=== PATIENT | female | born 1995 | race Caucasian/White ===

== ENCOUNTER 2018-05-25 20:51 | Emergency (ER) | payer OTHER ==
[~2018-05-25] VITALS: Ht 154.9 cm; Wt 48.7 kg
[~2018-05-25 20:51] MED LIST: CETI10TA10 PO; NORETAB29 PO; [UNRECOGNIZED DRUG - OTHER] OPB
[2018-05-25 20:55] VITALS: Ht 154.9 cm; Wt 48.7 kg
[2018-05-25] MEDS ORDERED: SODIUM CHLORIDE 0.9% 1000ML 2,000 ML IV STA (21:19)
[2018-05-25] MEDS ORDERED: KETOROLAC TROMETHAMINE 30 MG/ML VIAL IV STA (21:19)
[2018-05-25] MEDS ORDERED: ACETAMINOPHEN 500 MG TAB PO STA (21:19)
--- NOTE | 2018-05-25 21:39 | DIAGNOSTIC IMAGING REPORT ---
CHEST ONE VIEW PORTABLE CLINICAL HISTORY: 23 years-old Female presenting with cough and fever. TECHNIQUE: Portable upright AP view of the chest was obtained. COMPARISON: 01/30/2016. FINDINGS: Cardiomediastinal silhouette normal. Focal round opacity in the right midlung. No pleural effusion or pneumothorax. Osseous structures normal. Upper abdomen normal. IMPRESSION: 1. Round opacity in the right midlung most suspicious for pneumonia. This should be followed to resolution. Electronically signed by: Jitendra Dejesus M.D. 05/25/2018 9:38 PM Dictated Date/Time: 05/25/2018 9:37 PM
[2018-05-25 21:50] LABS: BASO % 0.2 %; BASO ABS # 0.01 K/uL (0-0.2); EOS % 0.2 %; EOS ABS # 0.01 K/uL (0-0.5); HEMATOCRIT 39.5 % (37-47); HEMOGLOBIN 13.7 g/dL (12.0-16.0); LYMPH % 14.1 %; MEAN CELL VOLUME 92.9 fL (80-100); MEAN CORPUSCULAR HEMOGLOBIN 32.2 pg (25-34); MEAN CORPUSCULAR HGB CONC 34.7 g/dl (32-36); MEAN PLATELET VOLUME 10.9 fL (7.4-10.4); MONO % 8.1 %; MONO ABS # 0.46 K/uL (0.11-0.59); NEUT % 77.4 %; NEUT ABS # 4.41 K/uL (1.4-6.5); PLATELET COUNT 208 K/uL (130-400); RED CELL DISTRIBUTION WIDTH CV 12.3 % (11.5-14.5); RED CELL DISTRIBUTION WIDTH SD 41.8 fL (36.4-46.3); WHITE BLOOD COUNT 5.69 K/uL (4.8-10.8)
[2018-05-25 22:16] LABS: ALBUMIN 3.7 gm/dl (3.4-5.0); CALCIUM 8.8 mg/dl (8.5-10.1); CREATININE 0.76 mg/dl (0.60-1.20); POTASSIUM 3.7 mmol/L (3.5-5.1); TOTAL PROTEIN 7.7 gm/dl (6.4-8.2)
[2018-05-25] MEDS ORDERED: DOXYCYCLINE HYCLATE 100 MG CAP PO ONE (23:15)
[2018-05-25] MEDS ORDERED: DOXY100C PO (23:15)
[2018-05-25 23:31] VITALS: BP 94/62; PULSE 97; TEMP 37.4; O2SAT 95
--- NOTE | 2018-05-26 01:31 | EMERGENCY ROOM VISIT NOTE ---
History Report prepared by Tristen: Екатерина Quinn Under the Supervision of: Dr. Valentín Amaral D.O. First contact with patient: 21:03 Chief Complaint: FEVER Stated Complaint: HIGH FEVER History of Present Illness The patient is a 23 year old female who presents to the Emergency Room with complaints of a worsening fever that began about three days ago. She states that the fever started off very low and she felt achiness along with it. She states that the fever then gradually got worse and it was most recently 103.9. She states that a dry cough started today and she can feel post nasal drip. She denies any sore throat. She states that she has abdominal pain with coughing. She states that her brother had similar symptoms recently and it was found he had adeno virus that then progressed into pneumonia. She states that she went to [facility] yesterday and go a zpac that she states she started today. She states that she has been taking advil since yesterday every six hours. She states that she last took it about two hours prior to arrival. She denies having any other medical problems. Source of History: patient Onset: three days ago Position: other (generalized ) Quality: other (fever) Timing: worsening Modifying Factors (Relieving): other (advil ) Associated Symptoms: + cough (dry ), + abdominal pain (with cough ), No sorethroat Note: additional symptoms: achiness Review of Systems See HPI for pertinent positives & negatives. A total of 10 systems reviewed and were otherwise negative. 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 Status: [employer] student Current/Historical Medications Scheduled Cetirizine Hcl (Zyrtec), 10 MG PO DAILY Doxycycline Hyclate (Vibramycin), 100 MG PO BID Lodoxamide Tromethamine (Alomide), 1 DROP OPB DAILY Norethindrone Acetate-Ethinyl (Lo Loestrin Fe), 1 TAB PO DAILY Allergies Coded Allergies: POLLEN (Unverified Allergy, Unknown, ITCHY EYES AND NOSE , 01/30/16) Peanut (Unverified Allergy, Unknown, SWELLING SWELLING CANT BREATH , ) Physical Exam Vital Signs Date Time Temp Pulse Resp B/P (MAP) Pulse Ox O2 Delivery O2 Flow Rate FiO2 05/25/18 23:31 37.4 97 18 94/62 95 05/25/18 22:50 37.7 88 16 116/68 99 Room Air 05/25/18 22:48 37.7 05/25/18 22:01 38.1 05/25/18 20:55 39.5 147 18 104/66 95 Room Air Physical Exam GENERAL: Sitting up in bed, with a dry nonproductive cough, alert, well appearing, well nourished, no distress, non-toxic EYE EXAM: normal conjunctiva. EARS: TMs normal bilaterally. OROPHARYNX: no exudate, no erythema, lips, buccal mucosa, and tongue normal and mucous membranes are moist NECK: supple, no nuchal rigidity, no adenopathy, non-tender LUNGS: Clear to auscultation. Normal chest wall mechanics HEART: no murmurs, S1 normal and S2 normal ABDOMEN: abdomen soft, non-tender, normo-active bowel sounds, no masses, no rebound or guarding. BACK: Back is symmetrical on inspection and there is no deformity, no midline tenderness, no CVA tenderness. SKIN: no rashes and no bruising UPPER EXTREMITIES: upper extremities are grossly normal. LOWER EXTREMITIES: No pitting edema. NEURO EXAM: Normal sensorium, cranial nerves II-XII grossly intact, normal speech, no gross weakness of arms, no gross weakness of legs. Medical Decision & Procedures ER Provider Diagnostic Interpretation: Radiology results as stated below per my review and the radiologist's interpretation: CHEST ONE VIEW PORTABLE CLINICAL HISTORY: 23 years-old Female presenting with cough and fever. TECHNIQUE: Portable upright AP view of the chest was obtained. COMPARISON: 01/30/2016. FINDINGS: Cardiomediastinal silhouette normal. Focal round opacity in the right midlung. No pleural effusion or pneumothorax. Osseous structures normal. Upper abdomen normal. IMPRESSION: 1. Round opacity in the right midlung most suspicious for pneumonia. This should be followed to resolution. Electronically signed by: Jitendra Dejesus M.D. 05/25/2018 9:38 PM Dictated Date/Time: 05/25/2018 9:37 PM Laboratory Results 05/25/18 21:39 Red Blood Count 4.25, Mean Corpuscular Volume 92.9, Mean Corpuscular Hemoglobin 32.2, Mean Corpuscular Hemoglobin Concent 34.7, Mean Platelet Volume 10.9, Neutrophils (%) (Auto) 77.4, Lymphocytes (%) (Auto) 14.1, Monocytes (%) (Auto) 8.1, Eosinophils (%) (Auto) 0.2, Basophils (%) (Auto) 0.2, Neutrophils # (Auto) 4.41, Lymphocytes # (Auto) 0.80, Monocytes # (Auto) 0.46, Eosinophils # (Auto) 0.01, Basophils # (Auto) 0.01 05/25/18 21:39 Test 05/25/18 21:39 White Blood Count 5.69 K/uL (4.8-10.8) Red Blood Count 4.25 M/uL (4.2-5.4) Hemoglobin 13.7 g/dL (12.0-16.0) Hematocrit 39.5 % (37-47) Mean Corpuscular Volume 92.9 fL (80-100) Mean Corpuscular Hemoglobin 32.2 pg (25-34) Mean Corpuscular Hemoglobin Concent 34.7 g/dl (32-36) Platelet Count 208 K/uL (130-400) Mean Platelet Volume 10.9 fL (7.4-10.4) Neutrophils (%) (Auto) 77.4 % Lymphocytes (%) (Auto) 14.1 % Monocytes (%) (Auto) 8.1 % Eosinophils (%) (Auto) 0.2 % Basophils (%) (Auto) 0.2 % Neutrophils # (Auto) 4.41 K/uL (1.4-6.5) Lymphocytes # (Auto) 0.80 K/uL (1.2-3.4) Monocytes # (Auto) 0.46 K/uL (0.11-0.59) Eosinophils # (Auto) 0.01 K/uL (0-0.5) Basophils # (Auto) 0.01 K/uL (0-0.2) RDW Standard Deviation 41.8 fL (36.4-46.3) RDW Coefficient of Variation 12.3 % (11.5-14.5) Immature Granulocyte % (Auto) 0.0 % Immature Granulocyte # (Auto) 0.00 K/uL (0.00-0.02) Anion Gap 6.0 mmol/L (3-11) Est Creatinine Clear Calc Drug Dose 88.3 ml/min Estimated GFR () 130.0 Estimated GFR (Non- 112.1 BUN/Creatinine Ratio 8.8 (10-20) Calcium Level 8.8 mg/dl (8.5-10.1) Total Bilirubin 0.4 mg/dl (0.2-1) Direct Bilirubin 0.2 mg/dl (0-0.2) Aspartate Amino Transf (AST/SGOT) 17 U/L (15-37) Alanine Aminotransferase (ALT/SGPT) 21 U/L (12-78) Alkaline Phosphatase 57 U/L (45-117) Total Protein 7.7 gm/dl (6.4-8.2) Albumin 3.7 gm/dl (3.4-5.0) Laboratory results per my review. Medications Administered Medications (Trade) Dose Ordered Sig/Evangelina Route Start Time Stop Time Status Last Admin Dose Admin Sodium Chloride 2,000 ml @ 999 mls/hr Q2H1M STAT IV 05/25/18 21:19 05/25/18 23:19 DC 05/25/18 21:45 999 MLS/HR Acetaminophen (Tylenol Tab) 1,000 mg NOW STAT PO 05/25/18 21:19 05/25/18 21:21 DC 05/25/18 21:45 1,000 MG Ketorolac Tromethamine (Toradol Inj) 30 mg NOW STAT IV 05/25/18 21:19 05/25/18 21:21 DC 05/25/18 21:44 30 MG Doxycycline Hyclate (Vibramycin Cap) 100 mg ONE ONCE PO 05/25/18 23:15 05/25/18 23:16 DC 05/25/18 23:25 100 MG ED Course ED COURSE: Vital signs were reviewed and showed febrile and tachycardic The patients medical record was reviewed The above diagnostic studies were performed and reviewed. ED treatments and interventions as stated above. 2118: The patient was evaluated in room C3. A complete history and physical examination was performed. 2321: Upon reevaluation, the patient is doing better. I discussed my findings with the patient and she understands and agrees with the treatment plan. The patient wants me to talk to her parents. 2334: Based on the patients age, coexisting illnesses, exam and lab findings the decision to treat as an outpatient was made. I talked to the patient's parents. The patient remained stable while under my care. The patient appeared well at the time of discharge. Medical Decision Differential diagnosis includes etiologies such as sepsis, UTI, pneumonia, metabolic, electrolyte abnormalities, cardiac sources, intracerebral event, toxicologic, neurologic, as well as others were entertained. Patient is a 23-year-old female who presents the ER for fevers associated with body aches cough and congestion. Brother was sick and diagnosed with adenovirus and pneumonia. She notes her symptoms are exactly the same. Upon presentation she is febrile and tachycardic. CBC along with BMP, LFTs, bilirubin was unremarkable. Chest x-ray does show a focal pneumonia. She is on azithromycin and I elected to switch her to doxycycline. She is given 2 L normal saline, Tylenol and Toradol. She was given oral doxycycline. She was updated bedside. Discussed with family. She is discharged follow-up with PCP as an outpatient with pneumonia. Discussed with Pt concerning signs and symptoms to watch out for. Pt was instructed to follow up with their PCP and discussed with the patient their option to return to the ED at anytime for persistent or worsening symptoms. The appropriate anticipatory guidance and out- patient management, including indications for return to the emergency department , were explained at length to the patient and understood. Medication Reconcilliation Current Medication List: was personally reviewed by me Blood Pressure Screening Patient's blood pressure: Normal blood pressure Impression Primary Impression: Pneumonia Scribe Attestation The scribe's documentation has been prepared under my direction and personally reviewed by me in its entirety. I confirm that the note above accurately reflects all work, treatment, procedures, and medical decision making performed by me. Departure Information Dispostion Home / Self-Care Prescriptions Doxycycline Hyclate (VIBRAMYCIN) 100 Mg Cap 100 MG PO BID for 10 Days, CAP Prov: Valentín Amaral DO 05/25/18 Referrals No Doctor, Assigned (PCP) Forms HOME CARE DOCUMENTATION FORM, IMPORTANT VISIT INFORMATION Patient Instructions My [facility] Additional Instructions Please follow up with your primary care doctor with in the next 24 hours. Any worsening of your symptoms, please return to the ED immediately. This includes any fevers greater than 100.4, worsening pain, chest pain, shortness breath, persistent nausea, vomiting, unable to eat or drink, or any other concerning signs or symptoms from your standpoint. Please take Tylenol or Motrin as needed for fevers and muscle aches. Please stop taking azithromycin which is her current antibiotic. Please start taking doxycycline as prescribed instead of azithromycin. Problem Qualifiers Primary Impression: Pneumonia Pneumonia type: due to unspecified organism Laterality: unspecified laterality Lung location: unspecified part of lung Qualified Codes: J18.9 - Pneumonia, unspecified organism
== END 2018-05-25 23:31 | disposition home or self-care (01) ==
LOC: C.EDB 20:52 → C.EDC 23:31
DX: J18.9 Pneumonia, unspecified organism (principal); Z79.899 Other long term (current) drug therapy; Z91.048 Other nonmedicinal substance allergy status; Z91.010 Allergy to peanuts

== ENCOUNTER 2018-05-29 08:24 | Inpatient (IN) | payer OTHER ==
[~2018-05-29] VITALS: Ht 154.9 cm; Wt 47.4 kg
[~2018-05-29 08:24] MED LIST changes: +DOXY100C PO
[2018-05-29] MEDS ORDERED: CEFTRIAXONE SOD INJ 1 GM ADDVIAL IV STA (09:04)
[2018-05-29] MEDS ORDERED: SODIUM CHLORIDE 0.9% 1000ML 2,000 ML IV STA (09:04)
[2018-05-29] MEDS ORDERED: HYDROCODONE/HOMATROPINE SYRUP 5MG/1.5MG 5ML UDP PO STA (09:07)
[2018-05-29] MEDS ORDERED: ALBUT/IPRATROP 3MG/0.5MG NEB 3 ML VIAL INH STA (09:07)
[2018-05-29] MEDS ORDERED: AZITHROMYCIN IV 500 MG in DEXTROSE 5% 250ML 250 ML IV ONE (09:30)
[2018-05-29] MEDS ORDERED: ACET-1311 PO (09:31)
[2018-05-29] MEDS ORDERED: IBUP-103 PO (09:31)
[2018-05-29 09:33] LABS: BASO % 0.4 %; BASO ABS # 0.02 K/uL (0-0.2); EOS % 1.3 %; EOS ABS # 0.07 K/uL (0-0.5); HEMATOCRIT 35.3 % (37-47); HEMOGLOBIN 12.5 g/dL (12.0-16.0); IG# 0.01 K/uL (0.00-0.02); LYMPH % 15.7 %; LYMPH ABS # 0.83 K/uL (1.2-3.4); MEAN CELL VOLUME 91.7 fL (80-100); MEAN CORPUSCULAR HEMOGLOBIN 32.5 pg (25-34); MEAN CORPUSCULAR HGB CONC 35.4 g/dl (32-36); MEAN PLATELET VOLUME 10.4 fL (7.4-10.4); MONO % 8.5 %; MONO ABS # 0.45 K/uL (0.11-0.59); NEUT % 73.9 %; NEUT ABS # 3.92 K/uL (1.4-6.5); PLATELET COUNT 251 K/uL (130-400); RED CELL DISTRIBUTION WIDTH CV 12.1 % (11.5-14.5); RED CELL DISTRIBUTION WIDTH SD 41.4 fL (36.4-46.3)
[2018-05-29 09:50] LABS: ALBUMIN 3.3 gm/dl (3.4-5.0); CALCIUM 9.1 mg/dl (8.5-10.1); CREATININE 0.62 mg/dl (0.60-1.20); POTASSIUM 3.7 mmol/L (3.5-5.1); TOTAL PROTEIN 7.3 gm/dl (6.4-8.2)
--- NOTE | 2018-05-29 09:59 | DIAGNOSTIC IMAGING REPORT ---
CHEST 2 VIEWS ROUTINE HISTORY: 23 years-old Female EVAL PNEUMONIA acute shortness of breath with follow-up study in a patient with history of recent pneumonia COMPARISON: Chest radiographs 05/25/2018 and 01/30/2016 TECHNIQUE: PA and lateral views of the chest FINDINGS: Cardiac silhouette is within normal limits. No pneumothorax or pleural effusion. Airspace opacities about the distribution of the superior segment right lower lobe have mildly worsened from comparison. Additionally, there is suggestion of ill-defined alveolar opacities of the right upper lobe. Left lung is clear. Bones of the chest appear grossly intact. IMPRESSION: Progressively worsened airspace opacities about the superior segment right lower lobe suggest ongoing pneumonia. Follow-up imaging to document resolution is recommended. The above report was generated using voice recognition software. It may contain grammatical, syntax or spelling errors. Electronically signed by: Ethan Cho M.D. 05/29/2018 9:58 AM Dictated Date/Time: 05/29/2018 9:56 AM
--- NOTE | 2018-05-29 10:34 | EMERGENCY ROOM VISIT NOTE ---
History First contact with patient: 08:36 Chief Complaint: RESPIRATORY PROBLEMS Stated Complaint: PNEUMONIA,FEVER,DIFFICULTY BREATHING,YEAST INFECTI Nursing Triage Summary: pt reports she was dx with cheli in ed on wednesday "i have just been getting worse, i can't breathe and i have a fever still, i also think i have a yeast infection." pt reports she went to [facility] on wednesday and given medication for yeast infection. pt reports she took tylenol at 0800 today. pt denies taking any motrin. History of Present Illness Patient is a 23-year-old female who presents to emergency department for ongoing cough, fever and shortness of breath. Patient relates that she has been sick with a fever for over a week. She was seen and thoroughly evaluated here on 05/25 after being seen at [facility] earlier in the day. She took 1 dose of a Z-Wisam on 05/25 prior to being seen here in the emergency department. She was diagnosed with pneumonia and was placed on doxycycline. Patient states that despite the doxycycline, her symptoms are worsening. She still has difficulty breathing, has a productive cough, and cannot lay flat. She still running fevers between 101-102 F orally, despite alternating Tylenol and ibuprofen. Patient also reports that she has developed symptoms consistent with a yeast infection including vaginal itching and discharge. She was seen at [facility] again yesterday, and it was placed on fluconazole 1 dose every 3 days x3 doses. Urinalysis was also concerning for a UTI, and a urine culture was ordered and is pending. Patient has been using cough drops, she was not placed on any other medications including inhalers or cough medications. Patient reports that her brother was ill with similar symptoms and was diagnosed with "adenovirus and then pneumonia." He was treated with a azithromycin according to the patient's mother. She does report a history of pneumonia last year. Patient reports that she is nauseous secondary to the doxycycline, has been pushing oral fluids, but only eating in order to take her antibiotic. She has not vomited. Review of Systems Review of systems as per HPI. All other systems reviewed were negative. 10 systems reviewed. Past Medical/Surgical History Medical Problems: (1) Community acquired pneumonia (2) Environmental and seasonal allergies (3) Fever (4) Keratoconjunctivitis (5) Pneumonia (6) Pneumonia (7) Viral illness Electronic medical records are reviewed and summarized as above/below. See Problem List. 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 Status: [employer] student Current/Historical Medications Scheduled Cetirizine Hcl (Zyrtec), 10 MG PO DAILY Doxycycline Hyclate (Vibramycin), 100 MG PO BID Lodoxamide Tromethamine (Alomide), 1 DROP OPB DAILY Miscellaneous Medications Acetaminophen (Tylenol), 325 MG PO Ibuprofen Tab (Advil), 200 MG PO Physical Exam Vital Signs Date Time Temp Pulse Resp B/P (MAP) Pulse Ox O2 Delivery O2 Flow Rate FiO2 05/29/18 11:38 109 16 95/62 95 Room Air 05/29/18 10:20 37.3 05/29/18 10:13 100 18 100/63 97 Room Air 05/29/18 09:21 100 20 107/62 95 Room Air 05/29/18 08:44 108 05/29/18 08:43 95 Room Air 05/29/18 08:35 Room Air 05/29/18 08:29 38.8 118 20 106/60 93 Room Air Physical Exam MENTAL STATUS: Patient is an ill although nontoxic appearing 23-year-old female who is awake and alert and in no acute distress. She is ambulatory into the exam room. No conversational dyspnea. She is noted to be febrile, temperature 38.8, tachycardic with a heart rate of 118. Oxygen saturation 93% on room air. HEAD: Atraumatic, without temporal or scalp tenderness. EYES: PERRL, EOMI, no discharge or injection. EARS: Tympanic membranes intact, not inflamed, have normal contour. External canals clear. NOSE: Nares patent, turbinates edematous and boggy with clear rhinorrhea. MOUTH: Mucous membranes moist, no lesions, tongue and gums appear normal. THROAT: No pharyngeal injection, exudates, or tonsillar hypertrophy. Airway is patent. NECK: Supple, nontender, no lymphadenopathy. HEART: Regular rate and rhythm without murmurs, ectopy, gallops, or rubs. LUNGS: Clear to auscultation, slightly diminished on the right compared to the left, no adventitious sounds appreciated. SKIN: Normal. NEUROLOGICAL: Sensory and motor functions grossly intact. Normal gait. Medical Decision & Procedures ER Provider Diagnostic Interpretation: CHEST 2 VIEWS ROUTINE HISTORY: 23 years-old Female EVAL PNEUMONIA acute shortness of breath with follow-up study in a patient with history of recent pneumonia COMPARISON: Chest radiographs 05/25/2018 and 01/30/2016 TECHNIQUE: PA and lateral views of the chest FINDINGS: Cardiac silhouette is within normal limits. No pneumothorax or pleural effusion. Airspace opacities about the distribution of the superior segment right lower lobe have mildly worsened from comparison. Additionally, there is suggestion of ill-defined alveolar opacities of the right upper lobe. Left lung is clear. Bones of the chest appear grossly intact. IMPRESSION: Progressively worsened airspace opacities about the superior segment right lower lobe suggest ongoing pneumonia. Follow-up imaging to document resolution is recommended. Laboratory Results 05/29/18 09:15 Red Blood Count 3.85, Mean Corpuscular Volume 91.7, Mean Corpuscular Hemoglobin 32.5, Mean Corpuscular Hemoglobin Concent 35.4, Mean Platelet Volume 10.4, Neutrophils (%) (Auto) 73.9, Lymphocytes (%) (Auto) 15.7, Monocytes (%) (Auto) 8.5, Eosinophils (%) (Auto) 1.3, Basophils (%) (Auto) 0.4, Neutrophils # (Auto) 3.92, Lymphocytes # (Auto) 0.83, Monocytes # (Auto) 0.45, Eosinophils # (Auto) 0.07, Basophils # (Auto) 0.02 05/29/18 09:15 Test 05/29/18 09:15 05/29/18 09:18 05/29/18 10:06 White Blood Count 5.30 K/uL (4.8-10.8) Red Blood Count 3.85 M/uL (4.2-5.4) Hemoglobin 12.5 g/dL (12.0-16.0) Hematocrit 35.3 % (37-47) Mean Corpuscular Volume 91.7 fL (80-100) Mean Corpuscular Hemoglobin 32.5 pg (25-34) Mean Corpuscular Hemoglobin Concent 35.4 g/dl (32-36) Platelet Count 251 K/uL (130-400) Mean Platelet Volume 10.4 fL (7.4-10.4) Neutrophils (%) (Auto) 73.9 % Lymphocytes (%) (Auto) 15.7 % Monocytes (%) (Auto) 8.5 % Eosinophils (%) (Auto) 1.3 % Basophils (%) (Auto) 0.4 % Neutrophils # (Auto) 3.92 K/uL (1.4-6.5) Lymphocytes # (Auto) 0.83 K/uL (1.2-3.4) Monocytes # (Auto) 0.45 K/uL (0.11-0.59) Eosinophils # (Auto) 0.07 K/uL (0-0.5) Basophils # (Auto) 0.02 K/uL (0-0.2) RDW Standard Deviation 41.4 fL (36.4-46.3) RDW Coefficient of Variation 12.1 % (11.5-14.5) Immature Granulocyte % (Auto) 0.2 % Immature Granulocyte # (Auto) 0.01 K/uL (0.00-0.02) Anion Gap 8.0 mmol/L (3-11) Est Creatinine Clear Calc Drug Dose 107.4 ml/min Estimated GFR () 149.4 Estimated GFR (Non- 128.9 BUN/Creatinine Ratio 7.4 (10-20) Calcium Level 9.1 mg/dl (8.5-10.1) Total Bilirubin 0.3 mg/dl (0.2-1) Aspartate Amino Transf (AST/SGOT) 24 U/L (15-37) Alanine Aminotransferase (ALT/SGPT) 29 U/L (12-78) Alkaline Phosphatase 53 U/L (45-117) Total Protein 7.3 gm/dl (6.4-8.2) Albumin 3.3 gm/dl (3.4-5.0) Globulin 4.0 gm/dl (2.5-4.0) Albumin/Globulin Ratio 0.8 (0.9-2) Human Chorionic Gonadotropin, Qual NEG (NEG) Bedside Lactic Acid Venous 0.55 mmol/L (0.90-1.70) Urine Color YELLOW Urine Appearance CLEAR (CLEAR) Urine pH 8.0 (4.5-7.5) Urine Specific [place] 1.005 (1.000-1.030) Urine Protein NEG (NEG) Urine Glucose (UA) NEG (NEG) Urine Ketones NEG (NEG) Urine Occult Blood 1+ (NEG) Urine Nitrite NEG (NEG) Urine Bilirubin NEG (NEG) Urine Urobilinogen NEG (NEG) Urine Leukocyte Esterase TRACE (NEG) Urine WBC (Auto) 1-5 /hpf (0-5) Urine RBC (Auto) 0-4 /hpf (0-4) Urine Hyaline Casts (Auto) 0 /lpf (0-5) Urine Epithelial Cells (Auto) 10-20 /lpf (0-5) Urine Bacteria (Auto) NEG (NEG) Medications Administered Medications (Trade) Dose Ordered Sig/Evangelina Route Start Time Stop Time Status Last Admin Dose Admin Sodium Chloride 2,000 ml @ 999 mls/hr Q2H1M STAT IV 05/29/18 09:04 05/29/18 11:04 DC 05/29/18 09:23 999 MLS/HR Ceftriaxone Sodium (Rocephin Inj) 1 gm NOW STAT IV 05/29/18 09:04 05/29/18 09:07 DC 05/29/18 09:23 1 GM Albuterol/ Ipratropium (Duoneb) 3 ml NOW STAT INH 05/29/18 09:07 05/29/18 09:08 DC 05/29/18 09:23 3 ML Hydrocodone Bit/ Homatropine Methylb (Hycodan Syrup) 10 ml NOW STAT PO 05/29/18 09:07 05/29/18 09:08 DC 05/29/18 09:22 10 ML Azithromycin 500 mg/Dextrose 255 ml @ 125 mls/hr ONE ONCE IV 05/29/18 09:30 05/29/18 11:32 DC 05/29/18 10:09 125 MLS/HR ED Course The patient was seen and assessed as above. Her old records were reviewed. IV lock was initiated and laboratory studies were collected. Patient history, physical exam and ED workup were reviewed with attending physician who concurred. She was hydrated with a 2 L bolus of normal saline solution. CBC with differential, CMP, blood cultures 2, [id number] lactic acid, urinalysis and serum hCG were obtained. The patient was given ceftriaxone 1 g IV and azithromycin 500 mg IV. She was given a DuoNeb treatment, and 10 cc of Hycodan. Laboratory studies revealed a normal white count of 5300, essentially unchanged from last week. No left shift or bandemia. Chemistries are unremarkable. No correctable electrolyte imbalance noted. Renal functions are normal. Transaminases are not elevated. Serum hCG is negative. [id number] lactic acid is normal. Urinalysis is not overly concerning for infection. Repeat chest x-ray obtained today noted progressively worsening airspace opacity around the superior segment of the right lower lobe suggesting ongoing pneumonia. Laboratory and diagnostic imaging studies were reviewed with attending physician. Patient was made aware of the results of her labs and her chest x- ray. With the patient's permission I did speak with her parents by telephone multiple times to keep them updated on the patient's condition. Patient has failed outpatient management of her pneumonia, and clinically is worsening. She presented to the emergency department febrile and tachycardic, symptoms improved with IV hydration and antipyretics. It was felt that she would benefit from admission/observation for further care and treatment. She was in agreement. Patient was reviewed with Dr. Prakash from the [facility]. Differential diagnoses entertained included URI, bronchitis, pneumonia, asthma exacerbation, allergic rhinitis, pneumothorax, among others. Medical Decision See ED Course. Medication Reconcilliation Current Medication List: was personally reviewed by me Blood Pressure Screening Patient's blood pressure: Low blood pressure Blood pressure disposition: Did not require urgent referral Impression Primary Impression: Pneumonia Additional Impression: Failure of outpatient treatment Departure Information Referrals [facility] (PCP) Patient Instructions My [facility] Problem Qualifiers Primary Impression: Pneumonia Pneumonia type: due to unspecified organism Laterality: right Lung location : lower lobe of lung Qualified Codes: J18.1 - Lobar pneumonia, unspecified organism
--- NOTE | 2018-05-29 11:40 | History and Physical ---
History & Physical Date & Time of Service: May 29, 2018 at 11:34 Chief Complaint: Pneumonia,Fever,Difficulty Breathing,Yeast Infecti [facility] of Present Illness Source: patient This patient is a 23-year-old female with a history of seasonal allergies and IBS-C who presents for the second time in the last 4 days for fever and cough. She was seen in this ER on 05/26 for fever and a dry cough and was found to have a right lower lobe pneumonia at that time. She had taken 1 dose of azithromycin given at the urgent care from the day before and at that point on , the ER physician switched her medication to doxycycline. Since then, she has been taking the doxycycline, but continued to spike fevers each day, and continues to have a nonproductive cough. In the ER here, she was found to be mildly hypoxic, tachycardic, and febrile. Her chest x-ray showed a worsening right lower lobe round pneumonia and some right upper lobe patchy airspace opacities. She will be admitted for failure of outpatient therapy for community -acquired pneumonia, as well as sepsis. 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[employer]) Immunizations Other Immunizations: She reports she is up-to-date with all the usual childhood vaccinations Allergies Coded Allergies: POLLEN (Unverified Allergy, Unknown, ITCHY EYES AND NOSE , 05/29/18) Peanut (Unverified Allergy, Unknown, SWELLING CANT BREATH, 05/29/18) oral allergy Home Medications Scheduled Cetirizine Hcl (Zyrtec), 10 MG PO DAILY Doxycycline Hyclate (Vibramycin), 100 MG PO BID Lodoxamide Tromethamine (Alomide), 1 DROP OPB DAILY Miscellaneous Medications Acetaminophen (Tylenol), 325 MG PO Ibuprofen Tab (Advil), 200 MG PO Review of Systems Constitutional: + fever, + chills, + sweats, + fatigue Eyes: No problem reported ENT: + sore throat (Mild) Respiratory: + cough, + shortness of breath, + dyspnea on exertion, No sputum Cardiovascular: + chest pain (Sometimes with coughing) Abdomen: + pain (Has been having some indigestion with taking doxycycline), + nausea, + constipation (Chronic), No vomiting, No diarrhea Musculoskeletal: No joint pain, No swelling, No problem reported (No neck pain or stiffness, no headache) Genitourinary - Female: + vaginal itching (Since taking antibiotics, only mildly improved with taking 1 dose of fluconazole 2 days ago), No dysuria, No vaginal discharge, No Neurologic: No problem reported Psychiatric: No problem reported Endocrine: No problem reported Hematologic / Lymphatic: No problem reported Integumentary: No rash, No problem reported Allergic / Immunologic: + environmental allergies, + seasonal allergies, + food allergies Physical Exam Vital Signs Date Time Temp Pulse Resp B/P (MAP) Pulse Ox O2 Delivery O2 Flow Rate FiO2 05/29/18 10:20 37.3 05/29/18 10:13 100 18 100/63 97 Room Air 05/29/18 09:21 100 20 107/62 95 Room Air 05/29/18 08:44 108 05/29/18 08:43 95 Room Air 05/29/18 08:35 Room Air 05/29/18 08:29 38.8 118 20 106/60 93 Room Air General Appearance: WD/WN, no apparent distress Head: normocephalic, atraumatic Eyes: normal inspection, PERRL, EOMI, sclerae normal ENT: normal ENT inspection, hearing grossly normal, TMs normal, pharynx normal Neck: supple, no adenopathy, thyroid normal, no JVD, no carotid bruits, trachea midline Respiratory/Chest: no respiratory distress, no accessory muscle use, + crackles (Very faint crackles in the right middle lung field, otherwise clear) Cardiovascular: no edema, no gallop, no murmur, normal peripheral pulses, + tachycardia (with reg rhythm) Abdomen/GI: normal bowel sounds, non tender, soft, no organomegaly, no pulsatile mass Genitourinary - Female: external genitalia normal (No discharge, no erythema or genital lesions) Back: normal inspection Extremities/Musculoskelatal: normal inspection, no calf tenderness, normal capillary refill, no pedal edema, normal range of motion Neurologic/Psych: 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 nml as tested, no motor/sensory deficits, alert, normal mood/affect, oriented x 3 Skin: normal color, warm/dry, no rash Lymphatic: no adenopathy Diagnostics Laboratory Results Results Past 24 Hours Test 05/29/18 09:15 05/29/18 09:18 05/29/18 10:06 Range/Units White Blood Count 5.30 4.8-10.8 K/uL Red Blood Count 3.85 4.2-5.4 M/uL Hemoglobin 12.5 12.0-16.0 g/dL Hematocrit 35.3 37-47 % Mean Corpuscular Volume 91.7 80-100 fL Mean Corpuscular Hemoglobin 32.5 25-34 pg Mean Corpuscular Hemoglobin Concent 35.4 32-36 g/dl Platelet Count 251 130-400 K/uL Mean Platelet Volume 10.4 7.4-10.4 fL Neutrophils (%) (Auto) 73.9 % Lymphocytes (%) (Auto) 15.7 % Monocytes (%) (Auto) 8.5 % Eosinophils (%) (Auto) 1.3 % Basophils (%) (Auto) 0.4 % Neutrophils # (Auto) 3.92 1.4-6.5 K/uL Lymphocytes # (Auto) 0.83 1.2-3.4 K/uL Monocytes # (Auto) 0.45 0.11-0.59 K/uL Eosinophils # (Auto) 0.07 0-0.5 K/uL Basophils # (Auto) 0.02 0-0.2 K/uL RDW Standard Deviation 41.4 36.4-46.3 fL RDW Coefficient of Variation 12.1 11.5-14.5 % Immature Granulocyte % (Auto) 0.2 % Immature Granulocyte # (Auto) 0.01 0.00-0.02 K/uL Sodium Level 141 136-145 mmol/L Potassium Level 3.7 3.5-5.1 mmol/L Chloride Level 104 98-107 mmol/L Carbon Dioxide Level 29 21-32 mmol/L Anion Gap 8.0 3-11 mmol/L Blood Urea Nitrogen 5 7-18 mg/dl Creatinine 0.62 0.60-1.20 mg/dl Est Creatinine Clear Calc Drug Dose 107.4 ml/min Estimated GFR () 149.4 Estimated GFR (Non- 128.9 BUN/Creatinine Ratio 7.4 10-20 Random Glucose 97 70-99 mg/dl Calcium Level 9.1 8.5-10.1 mg/dl Total Bilirubin 0.3 0.2-1 mg/dl Aspartate Amino Transf (AST/SGOT) 24 15-37 U/L Alanine Aminotransferase (ALT/SGPT) 29 12-78 U/L Alkaline Phosphatase 53 45-117 U/L Total Protein 7.3 6.4-8.2 gm/dl Albumin 3.3 3.4-5.0 gm/dl Globulin 4.0 2.5-4.0 gm/dl Albumin/Globulin Ratio 0.8 0.9-2 Human Chorionic Gonadotropin, Qual NEG NEG Bedside Lactic Acid Venous 0.55 0.90-1.70 mmol/L Urine Color YELLOW Urine Appearance CLEAR CLEAR Urine pH 8.0 4.5-7.5 Urine Specific [place] 1.005 1.000-1.030 Urine Protein NEG NEG Urine Glucose (UA) NEG NEG Urine Ketones NEG NEG Urine Occult Blood 1+ NEG Urine Nitrite NEG NEG Urine Bilirubin NEG NEG Urine Urobilinogen NEG NEG Urine Leukocyte Esterase TRACE NEG Urine WBC (Auto) 1-5 0-5 /hpf Urine RBC (Auto) 0-4 0-4 /hpf Urine Hyaline Casts (Auto) 0 0-5 /lpf Urine Epithelial Cells (Auto) 10-20 0-5 /lpf Urine Bacteria (Auto) NEG NEG Microbiology Results 05/29/18 Blood Culture, Received Pending 05/29/18 Blood Culture, Received Pending Diagnostic Radiology Chest x-ray image from 05/29 as well as from 05/26 both personally reviewed by me and agree with a round opacity in the superior segment of the right lower lobe that is slightly progressed on the more recent image. Otherwise normal chest x- ray Impression Assessment and Plan This patient is a 23-year-old female with a history of seasonal allergies and IBS-C who presents for the second time in the last 4 days for fever and cough. She was seen in this ER on 05/26 for fever and a dry cough and was found to have a right lower lobe pneumonia at that time. She had taken 1 dose of azithromycin given at the urgent care from the day before and at that point on , the ER physician switched her medication to doxycycline. Since then, she has been taking the doxycycline, but continued to spike fevers each day, and continues to have a nonproductive cough. In the ER here, she was found to be mildly hypoxic, tachycardic, and febrile. Her chest x-ray showed a worsening right lower lobe round pneumonia and some right upper lobe patchy airspace opacities. She will be admitted for failure of outpatient therapy for community -acquired pneumonia, as well as sepsis. Sepsis/community acquired pneumonia/acute hypoxic respiratory insufficiency- failed outpatient therapy with 1 dose of azithromycin and 3 days worth of doxycycline, however probably has Streptococcus pneumoniae that is resistant to these medications. She has no underlying cardiopulmonary or autoimmune disorders. She has no evidence otherwise on her entire exam or by laboratory findings to suggest atypical type of infection. She is septic by definition with tachycardia and fever, however there is no leukocytosis and her lactate is normal. -Admit to the medical floor -Continue IV Rocephin and azithromycin started in the ER-we will likely switch to p.o. Levaquin for discharge to finish out a 7 day course -She will need follow-up on chest x-ray to resolution in 4 weeks -Will continue IV fluids with normal saline at 125 ML's per hour -Ibuprofen or acetaminophen as needed for pain and fevers -Follow blood cultures, follow CBC and chemistry panel in the morning -Supplemental O2 as needed to keep pulse ox greater than 92% Seasonal allergies-continue Zyrtec as needed, she currently does not need her allergy eyedrop [id number] issue -MiraLAX as needed Prophylaxis-SCDs, Lovenox SQ Disposition-will likely be able to be discharged to home tomorrow but may need a 2 day stay Resuscitation Status Full code VTE Prophylaxis Will order VTE Prophylaxis: Yes Additional Copies To [facility]
[2018-05-29] MEDS ORDERED: RANITIDINE HCL 150 MG TAB PO ONE (11:56)
[2018-05-29] MEDS ORDERED: SACCHAROMYCES BOUL (FLORASTOR) 250 MG CAP PO ONE (11:56)
[2018-05-29 12:00] VITALS: Ht 154.9 cm; Wt 47.4 kg
[2018-05-29] MEDS ORDERED: FLUCONAZOLE 50 MG TAB PO ONE (12:00)
[2018-05-29] MEDS ORDERED: IBUPROFEN 600 MG TAB PO PRN (12:00)
[2018-05-29] MEDS ORDERED: POLYETHYLENE (MIRALAX) 17 GM PACK PO PRN (12:00)
[2018-05-29] MEDS ORDERED: ONDANSETRON INJ 2 MG/ML 2 ML VIAL IV PRN (12:00)
[2018-05-29] MEDS ORDERED: CETIRIZINE HCL 10 MG TAB PO PRN (12:15)
[2018-05-29 12:35] VITALS: O2SAT 98
[2018-05-29 13:10] VITALS: BP 106/70; PULSE 96; TEMP 36.6; O2SAT 96
[2018-05-29] MEDS: SODIUM CHLORIDE 0.9% 1000ML 1,000 ML IV SCH ×2 (13:25→22:54)
[2018-05-29] MEDS ORDERED: ENOXAPARIN 40 MG/0.4 ML SYR SQ SCH (14:00)
[2018-05-29 15:30] VITALS: BP 107/71; PULSE 95; TEMP 36.8; O2SAT 97
[2018-05-29] MEDS: ENOXAPARIN 30 MG/0.3 ML SYR SQ SCH (16:54)
[2018-05-29 21:20] VITALS: TEMP 38.9
[2018-05-29] MEDS: ACETAMINOPHEN 325 MG TAB PO PRN (21:23)
[2018-05-29] MEDS: RANITIDINE HCL 150 MG TAB PO SCH (21:24)
[2018-05-29 22:29] VITALS: TEMP 38.3
[2018-05-29] MEDS ORDERED: COUGH DROP (SUGAR FREE) LOZ 24 LOZ/1 BOX LOZ ONE (23:00)
[2018-05-29 23:01] VITALS: BP 100/66; PULSE 82; TEMP 37.2; O2SAT 94
[2018-05-30 01:00] VITALS: BP 106/70; PULSE 83; TEMP 36.9; O2SAT 94
[2018-05-30 05:58] VITALS: TEMP 36.9
[2018-05-30 06:14] LABS: HEMOGLOBIN 11.7 g/dL (12.0-16.0); MEAN CELL VOLUME 92.1 fL (80-100); MEAN CORPUSCULAR HEMOGLOBIN 31.7 pg (25-34); MEAN CORPUSCULAR HGB CONC 34.4 g/dl (32-36); MEAN PLATELET VOLUME 10.5 fL (7.4-10.4); PLATELET COUNT 271 K/uL (130-400); RED CELL DISTRIBUTION WIDTH CV 12.1 % (11.5-14.5); RED CELL DISTRIBUTION WIDTH SD 41.1 fL (36.4-46.3); WHITE BLOOD COUNT 3.81 K/uL (4.8-10.8)
[2018-05-30 06:46] LABS: ALBUMIN 2.9 gm/dl (3.4-5.0); ALKALINE PHOSPHATASE 48 U/L (45-117); ALT/SGPT 27 U/L (12-78); AST/SGOT 20 U/L (15-37); BLOOD UREA NITROGEN 4 mg/dl (7-18); CALCIUM 8.3 mg/dl (8.5-10.1); CARBON DIOXIDE 28 mmol/L (21-32); CREATININE 0.46 mg/dl (0.60-1.20); GLUCOSE 87 mg/dl (70-99); POTASSIUM 3.5 mmol/L (3.5-5.1); SODIUM 143 mmol/L (136-145); TOTAL PROTEIN 6.5 gm/dl (6.4-8.2)
[2018-05-30 07:53] VITALS: BP 93/60; PULSE 87; TEMP 36.9; O2SAT 97
[2018-05-30] MEDS: CEFTRIAXONE SOD INJ 1 GM in DEXTROSE 5% ADD-VANTAGE 50ML 50 ML IV SCH (09:15)
[2018-05-30] MEDS: RANITIDINE HCL 150 MG TAB PO SCH ×2 (09:15→21:17)
[2018-05-30] MEDS: SACCHAROMYCES BOUL (FLORASTOR) 250 MG CAP PO SCH (09:15)
[2018-05-30] MEDS: AZITHROMYCIN IV 250 MG in DEXTROSE 5% 250ML 250 ML IV SCH (10:17)
[2018-05-30] MEDS ORDERED: NURSING VERBAL MED ORDER ONE (11:45)
[2018-05-30] MEDS ORDERED: ALBUTEROL 0.083% NEBU SOLN 3 ML VIAL INH PRN (11:45)
[2018-05-30 11:55] VITALS: PULSE 74
--- NOTE | 2018-05-30 12:35 | Hospitalist Progress Note ---
Hospitalist Progress Note Date of Service May 30, 2018. Subjective Pt evaluation today including: conversation w/ patient, conversation w/ family Pt feels more SOB in the mid day today, had a neb treatment and finally felt like she coughed up some sputum. Feels less SOB after neb. Also has a mild headache. No diarrhea. No further abd pain, no nausea but still low appetite Constitutional: + fever All Other Systems: Reviewed and Negative Objective Vital Signs Date Time Temp Pulse Resp B/P (MAP) Pulse Ox O2 Delivery O2 Flow Rate FiO2 05/30/18 11:55 74 16 Room Air 05/30/18 08:00 Room Air 05/30/18 07:53 36.9 87 16 93/60 (71) 97 Room Air 05/30/18 05:58 36.9 05/30/18 01:00 36.9 83 20 106/70 (82) 94 Room Air 05/29/18 23:38 Room Air 05/29/18 23:01 37.2 82 18 100/66 (77) 94 Room Air 05/29/18 22:29 38.3 05/29/18 21:20 38.9 05/29/18 21:20 38.9 05/29/18 16:00 Room Air 05/29/18 15:30 36.8 95 16 107/71 (83) 97 Room Air 05/29/18 13:10 36.6 96 13 106/70 (82) 96 Room Air 05/29/18 12:35 37.2 98 18 98/67 98 Room Air Physical Exam General Appearance: no apparent distress, + thin Eyes: normal inspection, sclerae normal ENT: hearing grossly normal Neck: trachea midline Respiratory/Chest: no respiratory distress, no accessory muscle use, + crackles (in right middle lung field, otherwise clear) Cardiovascular: regular rate, rhythm, no edema, no gallop, no murmur Abdomen: normal bowel sounds, non tender, soft, no organomegaly Extremities: non-tender, normal inspection, no pedal edema, no calf tenderness (and neg Bhavya's sign) Neurologic/Psychiatric: alert, normal mood/affect Skin: normal color, warm/dry, no rash Laboratory Results Last 24 Hours Test 05/30/18 05:25 White Blood Count 3.81 K/uL Red Blood Count 3.69 M/uL Hemoglobin 11.7 g/dL Hematocrit 34.0 % Mean Corpuscular Volume 92.1 fL Mean Corpuscular Hemoglobin 31.7 pg Mean Corpuscular Hemoglobin Concent 34.4 g/dl RDW Standard Deviation 41.1 fL RDW Coefficient of Variation 12.1 % Platelet Count 271 K/uL Mean Platelet Volume 10.5 fL Sodium Level 143 mmol/L Potassium Level 3.5 mmol/L Chloride Level 107 mmol/L Carbon Dioxide Level 28 mmol/L Anion Gap 8.0 mmol/L Blood Urea Nitrogen 4 mg/dl Creatinine 0.46 mg/dl Est Creatinine Clear Calc Drug Dose 144.8 ml/min Estimated GFR () > 150.0 Estimated GFR (Non- 142.2 BUN/Creatinine Ratio 7.9 Random Glucose 87 mg/dl Calcium Level 8.3 mg/dl Total Bilirubin 0.2 mg/dl Aspartate Amino Transf (AST/SGOT) 20 U/L Alanine Aminotransferase (ALT/SGPT) 27 U/L Alkaline Phosphatase 48 U/L Total Protein 6.5 gm/dl Albumin 2.9 gm/dl Globulin 3.6 gm/dl Albumin/Globulin Ratio 0.8 Assessment and Plan This patient is a 23-year-old female with a history of seasonal allergies and IBS-C who presents for the second time in the last 4 days for fever and cough. She was seen in this ER on 05/26 for fever and a dry cough and was found to have a right lower lobe pneumonia at that time. She had taken 1 dose of azithromycin given at the urgent care from the day before and at that point on , the ER physician switched her medication to doxycycline. Since then, she has been taking the doxycycline, but continued to spike fevers each day, and continues to have a nonproductive cough. In the ER here, she was found to be mildly hypoxic, tachycardic, and febrile. Her chest x-ray showed a worsening right lower lobe round pneumonia and some right upper lobe patchy airspace opacities. She will be admitted for failure of outpatient therapy for community -acquired pneumonia, as well as sepsis. Sepsis/community acquired pneumonia/acute hypoxic respiratory insufficiency- failed outpatient therapy with 1 dose of azithromycin and 3 days worth of doxycycline, however probably has Streptococcus pneumoniae that is resistant to these medications. She has no underlying cardiopulmonary or autoimmune disorders. She has no evidence otherwise on her entire exam or by laboratory findings to suggest atypical type of infection. She is septic by definition with tachycardia and fever, however there is no leukocytosis and her lactate is normal. Improving, still with fever last night but wasn't even 24 hours after receiving IV abx. -Continue IV Rocephin and azithromycin today day #2-we will likely switch to p.o. Levaquin vs cefdinir and azithro for discharge to finish out a 7 day course -She will need follow-up on chest x-ray to resolution in 4 weeks -decrease IV fluids with normal saline to 75 ML's per hour -Ibuprofen or acetaminophen as needed for pain and fevers -Follow blood cultures, follow CBC and chemistry panel in the morning -check sputum cx if possible -added albuterol nebs prn SOB Gastritis-could be from doxycycline-was nauseated and with epigastric pains-now resolved with stopping doxy and starting Zantac -continue Zantac x 7 days Seasonal allergies-continue Zyrtec as needed, she currently does not need her allergy eyedrop [id number] issue -MiraLAX as needed Prophylaxis-SCDs, Lovenox SQ Disposition-will likely be able to be discharged to home tomorrow if POx with ambulation normal and BCxs remain no growth
[2018-05-30] MEDS: SODIUM CHLORIDE 0.9% 1000ML 1,000 ML IV SCH (14:36)
--- NOTE | 2018-05-30 15:09 | Medical Student: [facility] ---
[facility] Student Progress Note Date of Service May 30, 2018. Subjective Pt evaluation today including: conversation w/ patient Voiding: no voiding problems, no incontinence Ms. De Leon is a 23 y/o WF with a history of seasonal allergies and IBS-C who presents on day 2 of admission for sepsis/ community acquired pneumonia with concerns about a 1xwk history of SOB, fever, and labored, non-productive cough. She states that on Wednesday05/23/18, she "began to have a fever and not feel well ", alluding to her having a cough. Upon noticing a fever in the range of 101.0- 102.0F, she took two tablets of an unspecified dosage of Tylenol and "an Advil pill". On 05/24/18 her Sx worsened, as she developed a deep, labored cough, with persistent fever, and fatigue. Ms. De Leon has a history of pneumonia, her most recent being over the 2016. This prompted her to visit the local urgent care at [facility] where she was prescribed a "Z-pack" ( Azithromycin)*. Her fevers remained persistent and her coughs became increasingly labored, and she stated that she " felt as if she could not breathe ", prompting her to visit [facility] where she had a few a PA and Lateral Xray performed. The findings were significant for a right lower lobular pneumonia. Her Azithromycin was discontinued and Doxycycline was initiated and she was discharged. Over the next 4 days her respiratory Sx still worsened and she remained febrile with temperatures ranging between 102.5F to 103.3F, having severe abdominal discomfort with anorexia. Yesterday, 05/29/18, she returned to [facility] with concerns of an "unbroken temp of 103.0F, shortness of breath at rest and with increasing activity, muscle aches, lightheadedness headaches, fatigue, a persistently labored-nonproductive cough, lack of appetite, nausea, and vomiting. Another Xray was obtained, revealing that her right lobular pneumonia had worsened, with an increased circular opacity in the superior region of her right lower lobe and new opacity within her right inferior alveolar region was eminent. Due to the aforementioned Sx and findings, she was admitted to the Inpatient Medical department. Upon her arrival IVF drip was started. Her Doxycycline was discontinued and replaced with IV Azithromycin and Rocephin (ceftriaxone). She was given Ranitidine for indigestion, a probiotic, and prophylactic and Enoxaparin. A Upon her initial encounter, she endorsed concerns of vaginal irritation. There was mild vaginal discharge on her physical exam and a CBC and Urinalysis were obtained. It was discovered that she had a yeast infection, initiating the use of fluconazole. Because of her bradycardic, febrile, and tachypneic state during admission she is technically septic and must be monitored for such. Today, 05/30/18, Ms. De Leon states that she "feels better". Her cough is still nonproductively labored. She experiences SOB with decreased severity. She is afebrile, has regained her appetite, has been increasing her fluid intake and does not report any issues with voidance.She received her first doses of Azithromycin and Rocephin and reports no issues with the medication. She is concerned of her disposition and when she can be discharged. *Patient attributes her ailment to her brother who was diagnosed with an Adenovirus infection that led to pneumonia. During the period of 05/15/18- she was in close proximity with him while they were both home on summer vacation. Review of Systems Constitutional: + weakness, + fatigue, No fever, No chills, No sweats Eyes: No worsening of vision, No eye pain, No redness, No discharge, No diplopia ENT: No hearing loss, No unusual epistaxis, No nasal symptoms, No tinnitus, No dental problems Respiratory: + cough, + sputum, + wheezing, + shortness of breath, + dyspnea at rest Cardiac: + chest pain, No PND, No edema, No claudication, No palpitations Abdomen: No pain, No nausea, No vomiting, No diarrhea, No constipation, No GI bleeding Musculoskeletal: No joint pain, No muscle pain, No swelling, No calf pain Female : No dysuria, No hematuria, No incontinence, No abnormal vaginal bleeding Neurologic: No memory loss, No weakness, No numbness/tingling, No vertigo Psychiatric: No depression symptoms, No anhedonism, No anxiety, No insomnia, No substance abuse, No problem reported Heme: No abnormal bleeding/bruising, No clotting problems, No swollen lymph nodes, No night sweats Endo: No excessive urination Skin: No rash, No itch, No new/changing skin lesions, No color change, No bleeding All Other Systems: Reviewed and Negative Objective Vital Signs Date Time Temp Pulse Resp B/P (MAP) Pulse Ox O2 Delivery O2 Flow Rate FiO2 05/30/18 11:55 74 16 Room Air 05/30/18 08:00 Room Air 05/30/18 07:53 36.9 87 16 93/60 (71) 97 Room Air 05/30/18 05:58 36.9 05/30/18 01:00 36.9 83 20 106/70 (82) 94 Room Air 05/29/18 23:38 Room Air 05/29/18 23:01 37.2 82 18 100/66 (77) 94 Room Air 05/29/18 22:29 38.3 05/29/18 21:20 38.9 05/29/18 21:20 38.9 05/29/18 16:00 Room Air 05/29/18 15:30 36.8 95 16 107/71 (83) 97 Room Air Physical Exam General Appearance: WD/WN, no apparent distress Eyes: bilateral eyes normal inspection, bilateral eyes PERRL ENT: hearing grossly normal Neck: supple, thyroid normal, no JVD, no carotid bruits, trachea midline Respiratory/Chest: + respiratory distress, + rales Cardiovascular: regular rate, rhythm, no edema, no gallop, no JVD, no murmur, + bradycardia Abdomen: non tender, soft, no organomegaly, no pulsatile mass Extremities: normal range of motion, non-tender, normal inspection, no pedal edema, no calf tenderness Neurologic/Psychiatric: 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 nml as tested, no motor/sensory deficits, alert, normal mood/affect, oriented x 3 Skin: normal color, warm/dry, no rash Lymphatic: no adenopathy Laboratory Results Last 24 Hours Test 05/30/18 05:25 White Blood Count 3.81 K/uL Red Blood Count 3.69 M/uL Hemoglobin 11.7 g/dL Hematocrit 34.0 % Mean Corpuscular Volume 92.1 fL Mean Corpuscular Hemoglobin 31.7 pg Mean Corpuscular Hemoglobin Concent 34.4 g/dl RDW Standard Deviation 41.1 fL RDW Coefficient of Variation 12.1 % Platelet Count 271 K/uL Mean Platelet Volume 10.5 fL Sodium Level 143 mmol/L Potassium Level 3.5 mmol/L Chloride Level 107 mmol/L Carbon Dioxide Level 28 mmol/L Anion Gap 8.0 mmol/L Blood Urea Nitrogen 4 mg/dl Creatinine 0.46 mg/dl Est Creatinine Clear Calc Drug Dose 144.8 ml/min Estimated GFR () > 150.0 Estimated GFR (Non- 142.2 BUN/Creatinine Ratio 7.9 Random Glucose 87 mg/dl Calcium Level 8.3 mg/dl Total Bilirubin 0.2 mg/dl Aspartate Amino Transf (AST/SGOT) 20 U/L Alanine Aminotransferase (ALT/SGPT) 27 U/L Alkaline Phosphatase 48 U/L Total Protein 6.5 gm/dl Albumin 2.9 gm/dl Globulin 3.6 gm/dl Albumin/Globulin Ratio 0.8
[2018-05-30 15:45] VITALS: BP 105/75; PULSE 79; TEMP 36.7; O2SAT 97
[2018-05-30] MEDS: ENOXAPARIN 30 MG/0.3 ML SYR SQ SCH (15:49)
--- NOTE | 2018-05-30 16:17 | Medical Student: [facility] ---
[facility] Student Progress Note Date of Service May 30, 2018. Subjective Pt evaluation today including: conversation w/ patient, conversation w/ family , physical exam, lab review Voiding: no voiding problems (Alble to void, however has a negative I&O balance ), no incontinence Ms. De Leon is a 23 y/o WF with a history of seasonal allergies and IBS-C who presents on day 2 of admission for sepsis/ community acquired pneumonia with concerns about a 1xwk history of SOB, fever, and labored, non-productive cough. She states that on Wednesday05/23/18, she "began to have a fever and not feel well ", alluding to her having a cough. Upon noticing a fever in the range of 101.0- 102.0F, she took two tablets of an unspecified dosage of Tylenol and "an Advil pill". On 05/24/18 her Sx worsened, as she developed a deep, labored cough, with persistent fever, and fatigue. Ms. De Leon has a history of pneumonia, her most recent being over the 2016. This prompted her to visit the local urgent care at [facility] where she was prescribed a "Z-pack" ( Azithromycin)*. Her fevers remained persistent and her coughs became increasingly labored, and she stated that she " felt as if she could not breathe ", prompting her to visit [facility] where she had a few a PA and Lateral Xray performed. The findings were significant for a right lower lobular pneumonia. Her Azithromycin was discontinued and Doxycycline was initiated and she was discharged. Over the next 4 days her respiratory Sx still worsened and she remained febrile with temperatures ranging between 102.5F to 103.3F, having severe abdominal discomfort with anorexia. Yesterday, 05/29/18, she returned to [facility] with concerns of an "unbroken temp of 103.0F, shortness of breath at rest and with increasing activity, muscle aches, lightheadedness headaches, fatigue, a persistently labored-nonproductive cough, lack of appetite, nausea, and vomiting. Another Xray was obtained, revealing that her right lobular pneumonia had worsened, with an increased circular opacity in the superior region of her right lower lobe and new opacity within her right inferior alveolar region was eminent. Due to the aforementioned Sx and findings, she was admitted to the Inpatient Medical department. Upon her arrival IVF drip was started. Her Doxycycline was discontinued and replaced with IV Azithromycin and Rocephin (ceftriaxone). She was given Ranitidine for indigestion, a probiotic, and prophylactic and Enoxaparin. A Upon her initial encounter, she endorsed concerns of vaginal irritation. There was mild vaginal discharge on her physical exam and a CBC and Urinalysis were obtained. It was discovered that she had a yeast infection, initiating the use of fluconazole. Because of her tachycardic, febrile, and tachypneic state during admission she is technically septic and must be monitored for such. Today, 05/30/18, Ms. De Leon states that she "feels better". Her cough is still nonproductively labored. She experiences SOB with decreased severity. She is afebrile, has regained her appetite, has been increasing her fluid intake and does not r *Patient attributes her ailment to her brother who was diagnosed with an Adenovirus infection that led to pneumonia. During the period of 05/15/18- she was in close proximity with him while they were both home on summer vacation. Review of Systems Constitutional: + weakness, + fatigue, No fever, No chills, No sweats, No weight loss Eyes: No worsening of vision, No eye pain, No redness, No discharge, No diplopia, No problem reported ENT: No hearing loss, No unusual epistaxis, No nasal symptoms, No sore throat, No tinnitus, No dental problems, No trouble swallowing Respiratory: + cough, + sputum, + wheezing, + shortness of breath, + dyspnea on exertion, + dyspnea at rest, No hemoptysis Cardiac: + chest pain, No orthopnea, No PND, No edema, No claudication, No palpitations Breast: No breast lump, No nipple discharge, No breast pain Abdomen: No pain, No nausea, No vomiting, No diarrhea, No constipation Musculoskeletal: + muscle pain (pt states she feels achy), No joint pain, No problem reported Female : + urinary frequency, + vaginal discharge (It was stated in prior note, however was not discussed today), No dysuria, No hematuria, No incontinence, No abnormal vaginal bleeding Neurologic: No weakness, No numbness/tingling, No vertigo, No balance problems Psychiatric: No depression symptoms, No anhedonism, No anxiety, No insomnia, No substance abuse Heme: No abnormal bleeding/bruising, No clotting problems, No swollen lymph nodes, No night sweats Endo: + fatigue, No excessive thirst, No excessive urination Skin: No rash, No itch, No new/changing skin lesions, No color change, No bleeding All Other Systems: Reviewed and Negative Objective Vital Signs Date Time Temp Pulse Resp B/P (MAP) Pulse Ox O2 Delivery O2 Flow Rate FiO2 05/30/18 15:45 36.7 79 18 105/75 (85) 97 Room Air 05/30/18 11:55 74 16 Room Air 05/30/18 08:00 Room Air 05/30/18 07:53 36.9 87 16 93/60 (71) 97 Room Air 05/30/18 05:58 36.9 05/30/18 01:00 36.9 83 20 106/70 (82) 94 Room Air 05/29/18 23:38 Room Air 05/29/18 23:01 37.2 82 18 100/66 (77) 94 Room Air 05/29/18 22:29 38.3 05/29/18 21:20 38.9 05/29/18 21:20 38.9 Physical Exam General Appearance: WD/WN, no apparent distress Eyes: bilateral eyes normal inspection, bilateral eyes PERRL, bilateral eyes EOMI ENT: hearing grossly normal, TMs normal Neck: thyroid normal, no JVD, no carotid bruits, trachea midline Respiratory/Chest: + accessory muscle use, + rales (R. 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, no motor/sensory deficits, alert, normal mood/affect, oriented x 3 Skin: normal color, warm/dry, no rash Laboratory Results Last 24 Hours Test 05/30/18 05:25 White Blood Count 3.81 K/uL Red Blood Count 3.69 M/uL Hemoglobin 11.7 g/dL Hematocrit 34.0 % Mean Corpuscular Volume 92.1 fL Mean Corpuscular Hemoglobin 31.7 pg Mean Corpuscular Hemoglobin Concent 34.4 g/dl RDW Standard Deviation 41.1 fL RDW Coefficient of Variation 12.1 % Platelet Count 271 K/uL Mean Platelet Volume 10.5 fL Sodium Level 143 mmol/L Potassium Level 3.5 mmol/L Chloride Level 107 mmol/L Carbon Dioxide Level 28 mmol/L Anion Gap 8.0 mmol/L Blood Urea Nitrogen 4 mg/dl Creatinine 0.46 mg/dl Est Creatinine Clear Calc Drug Dose 144.8 ml/min Estimated GFR () > 150.0 Estimated GFR (Non- 142.2 BUN/Creatinine Ratio 7.9 Random Glucose 87 mg/dl Calcium Level 8.3 mg/dl Total Bilirubin 0.2 mg/dl Aspartate Amino Transf (AST/SGOT) 20 U/L Alanine Aminotransferase (ALT/SGPT) 27 U/L Alkaline Phosphatase 48 U/L Total Protein 6.5 gm/dl Albumin 2.9 gm/dl Globulin 3.6 gm/dl Albumin/Globulin Ratio 0.8 Assessment and Plan Problems Failure of outpatient treatment Environmental and seasonal allergies Keratoconjunctivitis Assessment and Plan: Ms. De Leon is a 23 y/o WF with a history of seasonal allergies and IBS-C who presents on day 2 of admission for sepsis/ community acquired pneumonia with concerns about a 1xwk history of SOB, fever, and labored, non-productive cough. She was admitted in [facility] 05/26 for fever and a dry cough and was found to have right lower lobe pneumonia. She had taken 1 dose of azithromycin received from [facility] (urgent care) from the day before. On 05/26, the ER physician switched her medication to doxycycline. Since then, she has been taking the doxycycline, but remained febrile with a persistent nonproductive cough. In the [facility] was found to be mildly hypoxic, tachycardic, and febrile. Her chest x- ray showed a worsening right lower lobe round pneumonia and some right upper lobe opacity. She was admitted for failure of outpatient therapy for community- acquired pneumonia, as well as sepsis. "Sepsis/community acquired pneumonia/acute hypoxic respiratory insufficiency- failed outpatient therapy with 1 dose of azithromycin and 3 days worth of doxycycline, however probably has Streptococcus pneumoniae that is resistant to these medications. She has no underlying cardiopulmonary or autoimmune disorders. She has no evidence otherwise on her entire exam or by laboratory findings to suggest atypical type of infection. She is septic by definition with tachycardia and fever, however there is no leukocytosis and her lactate is normal. -Admit to the medical floor -Continue IV Rocephin and azithromycin started in the ER-we will likely switch to p.o. Levaquin for discharge to finish out a 7 day course -She will need follow-up on chest x-ray to resolution in 4 weeks -Will continue IV fluids with normal saline at 125 ML's per hour -Ibuprofen or acetaminophen as needed for pain and fevers -Follow blood cultures, follow CBC and chemistry panel in the morning -Supplemental O2 as needed to keep pulse ox greater than 92% Seasonal allergies-continue Zyrtec as needed, she currently does not need her allergy eyedrop [id number] issue -MiraLAX as needed Prophylaxis-SCDs, Lovenox SQ" (per Dr. Prakash's note) Disposition-will not be discharged today and will need to stay overnight. Potential discharge tomorrow on 05/31/18. Continued [facility] stay due to: fever, inadequate po fluid intake
[2018-05-30] MEDS ORDERED: NURSING DECISION MEDICATION ORDER SCH (16:30)
[2018-05-30] MEDS ORDERED: SODIUM CHLORIDE 0.65% NA SOLN 45 ML (OCEAN) PRN (16:45)
[2018-05-30] MEDS: ACETAMINOPHEN 325 MG TAB PO PRN (19:47)
[2018-05-30 22:58] VITALS: BP 108/74; PULSE 81; TEMP 37.2; O2SAT 94
[2018-05-31 05:57] LABS: HEMATOCRIT 32.9 % (37-47); HEMOGLOBIN 11.3 g/dL (12.0-16.0); MEAN CELL VOLUME 91.6 fL (80-100); MEAN CORPUSCULAR HEMOGLOBIN 31.5 pg (25-34); MEAN CORPUSCULAR HGB CONC 34.3 g/dl (32-36); MEAN PLATELET VOLUME 10.4 fL (7.4-10.4); PLATELET COUNT 309 K/uL (130-400); RED CELL DISTRIBUTION WIDTH CV 12.1 % (11.5-14.5); RED CELL DISTRIBUTION WIDTH SD 41.2 fL (36.4-46.3); WHITE BLOOD COUNT 3.72 K/uL (4.8-10.8)
[2018-05-31 06:28] LABS: ALBUMIN 2.9 gm/dl (3.4-5.0); ALKALINE PHOSPHATASE 48 U/L (45-117); ALT/SGPT 26 U/L (12-78); AST/SGOT 21 U/L (15-37); BLOOD UREA NITROGEN 7 mg/dl (7-18); CARBON DIOXIDE 29 mmol/L (21-32); GLUCOSE 90 mg/dl (70-99); POTASSIUM 3.4 mmol/L (3.5-5.1); SODIUM 141 mmol/L (136-145); TOTAL PROTEIN 6.6 gm/dl (6.4-8.2)
[2018-05-31 07:11] VITALS: BP 105/69; PULSE 66; TEMP 37; O2SAT 96
[2018-05-31] MEDS ORDERED: POTASSIUM CHLORIDE 10 MEQ TABCR PO STA (08:07)
--- NOTE | 2018-05-31 09:04 | Medical Student: [facility] ---
Med Student Progress Note Date of Service May 31, 2018. Subjective Pt evaluation today including: conversation w/ patient, conversation w/ family , physical exam, review of inpatient medication list Voiding: no voiding problems, no incontinence, voiding difficulty (pt has known IBS-C) c/c: Community Acquired Pneumonia/ sepsis 8:30a:Ms. De Leon is a 23 y/o WF with a history of seasonal allergies and IBS-C who presents on day 3 of admission for sepsis/ community acquired pneumonia with concerns about a 1xwk history of SOB, fever, and labored, non-productive cough. [Please refer to HPI from 05/30/18] Today, 05/31/18, she reports that she is "feeling much better after being up since 5:30a". She has remained afebrile since yesterday morning, but states that she woke up sweaty and is unsure why. She no longer meets the SIRS criteria for sepsis and is no longer deemed septic. She reports being severely less SOB, stating it has only occurred during the night. She reports that "propping herself up on her pillows seemed to mildly ease her coughing", however her coughs have remained nonproductive with the similar sensation of not being able to expel phlegm. She woke up with a headache, describing it as "one you would get if you were nauseous", but has no nausea or undergone any interventions for it. She has a new concern of L. ear pain, without any changes in hearing, or phonophobia. She has been ambulatory without any complications or falls, taking a few laps around the nursing station yesterday afternoon and last night. She has frequently urinated about once an hr. Ms. De Leon still reports dysuria, but no discharge has been eminent. No bowel movements, however she has known IBS-C and laxative has been ineffective in the past. Her appetite has returned to normal from when I saw her yesterday morning, she consumed her breakfast 90% compared to yesterday's 40% (only a few pieces of fruit and some half of a slice of toast. Her IV drip was detached last night and she has not received any medications yet this morning. 9:23a: Meds: all were administered after this point Ms. De Leon received Azithromycin, Rocephin, her probiotic, Zofran and Zantac after reporting some nausea after administration of her antibiotics. 12:20p: Ms. De Leon had no new concerns except for the status of her disposition. However, she asked for clarification for what she should do in relation to her vaginal irritation and dysuria if she is discharged. Review of Systems Constitutional: + see HPI, + problem reported (reports having a new onset of a headache this morning. She is not sure if it is due to dehyrdration, coughign throughout the night or to being up earlier than normal.), No fever, No chills, No fatigue (states that she feels better than yesterday and is tired due to waking up at 5:30a because of being uncomfortable) Eyes: No worsening of vision, No eye pain, No redness, No discharge, No diplopia ENT: + sore throat, No hearing loss, No unusual epistaxis, No nasal symptoms, No tinnitus, No dental problems, No trouble swallowing Respiratory: + cough, + sputum (nonproductive feels as if the sputum is "stuck " amd unable to come out of her airway) Cardiac: + chest pain (attributed to coughing) Breast: No breast lump, No change in shape, No nipple discharge, No breast pain , No problem reported Abdomen: + constipation, No pain, No nausea, No vomiting, No diarrhea, No GI bleeding Musculoskeletal: No joint pain, No muscle pain, No swelling, No calf pain Female : + dysuria, + urinary frequency (attributed to IVF), No hematuria, No incontinence, No abnormal vaginal bleeding, No vaginal discharge Neurologic: No memory loss, No paralysis, No weakness, No numbness/tingling, No vertigo, No balance problems Psychiatric: No depression symptoms, No anhedonism, No anxiety, No insomnia, No substance abuse Heme: + night sweats (woke up sweaty, but wasn't sure if it was due to the temperature of the room), No abnormal bleeding/bruising, No clotting problems Endo: No excessive thirst Skin: No rash, No itch, No new/changing skin lesions, No color change, No bleeding All Other Systems: Reviewed and Negative Objective Vital Signs Date Time Temp Pulse Resp B/P (MAP) Pulse Ox O2 Delivery O2 Flow Rate FiO2 05/31/18 07:11 37.0 66 18 105/69 (81) 96 Room Air 05/30/18 22:58 37.2 81 18 108/74 (85) 94 Room Air 05/30/18 21:53 Room Air 05/30/18 15:45 36.7 79 18 105/75 (85) 97 Room Air 05/30/18 11:55 74 16 Room Air Physical Exam General Appearance: WD/WN, no apparent distress, + thin Eyes: bilateral eyes normal inspection, bilateral eyes PERRL, bilateral eyes EOMI ENT: normal ENT inspection, hearing grossly normal, TMs normal, pharynx normal Neck: supple, no adenopathy, thyroid normal, no JVD, no carotid bruits, trachea midline Respiratory/Chest: chest non-tender, no respiratory distress, no accessory muscle use, + decreased breath sounds (secondary to pneumonia), + wheezing ( mild wheezing heard in the R. 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, no motor/sensory deficits, alert, normal mood/affect, oriented x 3 Skin: normal color, warm/dry, no rash Lymphatic: no adenopathy Laboratory Results Last 24 Hours Test 05/31/18 05:26 White Blood Count 3.72 K/uL Red Blood Count 3.59 M/uL Hemoglobin 11.3 g/dL Hematocrit 32.9 % Mean Corpuscular Volume 91.6 fL Mean Corpuscular Hemoglobin 31.5 pg Mean Corpuscular Hemoglobin Concent 34.3 g/dl RDW Standard Deviation 41.2 fL RDW Coefficient of Variation 12.1 % Platelet Count 309 K/uL Mean Platelet Volume 10.4 fL Sodium Level 141 mmol/L Potassium Level 3.4 mmol/L Chloride Level 104 mmol/L Carbon Dioxide Level 29 mmol/L Anion Gap 8.0 mmol/L Blood Urea Nitrogen 7 mg/dl Creatinine 0.50 mg/dl Est Creatinine Clear Calc Drug Dose 133.2 ml/min Estimated GFR () > 150.0 Estimated GFR (Non- 138.4 BUN/Creatinine Ratio 14.1 Random Glucose 90 mg/dl Calcium Level 9.0 mg/dl Total Bilirubin 0.2 mg/dl Aspartate Amino Transf (AST/SGOT) 21 U/L Alanine Aminotransferase (ALT/SGPT) 26 U/L Alkaline Phosphatase 48 U/L Total Protein 6.6 gm/dl Albumin 2.9 gm/dl Globulin 3.7 gm/dl Albumin/Globulin Ratio 0.8 Assessment and Plan Problems Failure of outpatient treatment Environmental and seasonal allergies Keratoconjunctivitis Assessment and Plan: Ms. De Leon is a 23 y/o WF with a history of seasonal allergies and IBS-C who presents on day 3 of admission for sepsis/ community acquired pneumonia with concerns about a 1xwk history of SOB, fever, and labored, non-productive cough. She was admitted in [facility] 05/26 for fever and a dry cough and was found to have right lower lobe pneumonia. She had taken 1 dose of azithromycin received from [facility] (urgent care) from the day before. On 05/26, the ER physician switched her medication to doxycycline. Since then, she has been taking the doxycycline, but remained febrile with a persistent nonproductive cough. In the [facility] was found to be mildly hypoxic, tachycardic, and febrile. Her chest x- ray showed a worsening right lower lobe round pneumonia and some right upper lobe opacity. She was admitted for failure of outpatient therapy for community- acquired pneumonia, as well as sepsis. Sepsis- from time of diagnosis, this condition has resolved. Community Acquired Pneumonia- Continue Azithromycin, however switch from IV to PO. She will need to take 1 250mg pill daily, for the next 2 days to complete the the 5-day regimen. Switch from IV Rocephin to Cefdinir for 4 more days to complete the 7-day regimen. F/u with another CXr in 4weeks to see if pneumonia has resolved on imaging. A 2wk f/u with Dr. Prakash has been advised and will be scheduled upon discharge. Yeast Infection- Dr. Prakash discussed the differing opinions she received from urgent care. Fluconazole is no longer necessary for consumption. However, due frequent imitation and dysuria, to soothe these complications it was advised that she purchases Clotrimazole, a vaginal suppository to administer at night before bed. Ear Pain- no erythema was found in her left ear and the findings were not indicative to specifically treat medicinally due to possibility of the other antibiotics assessing any possible infection of bacterial etiology. If Sx still persist after a few days of regimen completion, seek medical advice from PCP. IBS-C- Miralax was given throughout her stay and because she has not passed a bowel for more than 4 days, more will be given upon her discharge. Hypokalemia- Pt's lab values showed that she was slighlty hypokalemic and to address such, 10meq for every 0.1L was given, equating to 40meq PO given upon discharge Disposition: It is believed that the patient is well enough to manage the remaining duration of her symptoms via an outpatient approach of self administration her medication,switching from IV to oral medications, and following up with her PCP. Continued [facility] stay due to: fever, inadequate po fluid intake Discharge planning: home
[2018-05-31] MEDS: ACETAMINOPHEN 325 MG TAB PO PRN (09:23)
[2018-05-31] MEDS: CEFTRIAXONE SOD INJ 1 GM in DEXTROSE 5% ADD-VANTAGE 50ML 50 ML IV SCH (09:23)
[2018-05-31] MEDS: RANITIDINE HCL 150 MG TAB PO SCH (09:24)
[2018-05-31] MEDS: SACCHAROMYCES BOUL (FLORASTOR) 250 MG CAP PO SCH (09:25)
[2018-05-31] MEDS: AZITHROMYCIN IV 250 MG in DEXTROSE 5% 250ML 250 ML IV SCH (10:43)
[2018-05-31] MEDS ORDERED: ACET-1311 PO (13:04)
[2018-05-31] MEDS ORDERED: ZNT150 PO (13:04)
[2018-05-31] MEDS ORDERED: CLOT1CRE3 PV (13:04)
[2018-05-31] MEDS ORDERED: GFNSR600 PO (13:04)
[2018-05-31] MEDS ORDERED: CEFD1CAP14 PO (13:04)
[2018-05-31] MEDS ORDERED: AZIT-57 PO (13:04)
[2018-05-31] MEDS ORDERED: SACC250C3 PO (13:04)
--- NOTE | 2018-05-31 13:06 | Discharge Instructions ---
Discharge Instructions Date of Service May 31, 2018. Admission Reason for Admission: Community Acquired Pneumonia Discharge Discharge Diagnosis / Problem: Community-acquired pneumonia Discharge Goals Goal(s): Improve disease control, Diagnostic testing, Therapeutic intervention Activity Recommendations Activity Limitations: as noted below Exercise/Sports Limitations: gradually increase as tolerated Shower/Bathe: no limitations Driving or Machine Use: no limitations Remain out of school until . . Instructions / Follow-Up Instructions / Follow-Up You were admitted with community-acquired pneumonia and treated with antibiotics and IV fluids. You had improvement in your fevers and your symptoms. Please finish out the 2 antibiotics as directed. Please follow-up with Dr. Ellis on Wednesday as scheduled for you. You should have a repeat chest x-ray in 4-6 weeks to ensure resolution of the pneumonia. Current Hospital Diet Patient's current hospital diet: Regular Diet Discharge Diet Recommended Diet: Regular Diet Procedures Procedures Performed: Chest x-ray Pending Studies Studies pending at discharge: yes List of pending studies: Final blood culture result-no growth to date Medical Emergencies . Who to Call and When: Medical Emergencies: If at any time you feel your situation is an emergency, please call 911 immediately. . Non-Emergent Contact Non-Emergency issues call your: Primary Care Provider Call Non-Emergent contact if: you have a fever, temperature is above 101, your pain is not controlled, your pain is worsening, your pain is unusual for you, your pain is concerning you, you have any medication questions . . "Provider Documentation" section prepared by Ana Lilia Prakash. .
--- NOTE | 2018-05-31 13:13 | Discharge Summary ---
Discharge Summary Date of Service May 31, 2018. Discharge Summary Admission Date: May 29, 2018 at 12:03 Discharge Date: May 31, 2018 Discharge Disposition: Home Principal Diagnosis: Community-acquired pneumonia, sepsis Problems/Secondary Diagnoses: Environmental and seasonal allergies Keratoconjunctivitis IBS-C Hypokalemia Acute hypoxic respiratory insufficiency Suspected gastritis secondary to doxycycline Procedures: Chest x-ray Consultations: None Medication Reconciliation New Medications: Azithromycin (Azithromycin) 250 Mg Tab 1 TAB PO DAILY for 2 Days, #2 TAB Already has at home Cefdinir (Omnicef) 300 Mg Cap 300 MG PO Q12H for 4 Days, #8 CAP Clotrimazole Vaginal (Clotrimazole) 1 % Cre 1 SUPP PV HS for 7 Days, #7 SUPP Guaifenesin Ext Rel (Mucinex Ext Rel) 600 Mg Tabcr 600 MG PO Q12 for 7 Days, #14 TAB Can buy OTC Ranitidine HCl (Ranitidine HCl) 150 Mg Tab 150 MG PO BID for 5 Days, #10 TAB Saccharomyces Boulardii (Florastor) 250 Mg Cap 250 MG PO DAILY for 30 Days, #30 CAP Can buy OTC Changed Medications: Acetaminophen (Tylenol) 325 Mg Tab 650 MG PO Q6H PRN for Pain or Fever for 7 Days (Changed from: 325 MG) Continued Medications: Cetirizine Hcl (Zyrtec) 10 Mg Tab 10 MG PO DAILY, TAB Lodoxamide Tromethamine (Alomide) 10 Ml Soln 1 DROP OPB DAILY Discontinued Medications: Doxycycline Hyclate (Vibramycin) 100 Mg Cap 100 MG PO BID for 10 Days, CAP Ibuprofen Tab (Advil) 200 Mg Tab 200 MG PO for Pain, TAB Discharge Exam Patient feeling much improved on the day of discharge. Remains afebrile for 36 hours. She is not short of breath anymore. She still has some irritation in the vaginal region especially with urination. She has urinated over 6 L in the past 24 hours because of previous copious IV fluids. No abdominal pain and no bowel movement in several days which is normal for her. No chest pain. She is eating all of her meals and has no further nausea. She is having some left ear pain. Denies headache or muffled hearing. Physical Exam General Appearance: no apparent distress, + thin Eyes: normal inspection, sclerae normal ENT: hearing grossly normal Neck: trachea midline Respiratory/Chest: no respiratory distress, no accessory muscle use, + crackles (in right middle lung field, otherwise clear) Cardiovascular: regular rate, rhythm, no edema, no gallop, no murmur Abdomen: normal bowel sounds, non tender, soft, no organomegaly Extremities: non-tender, normal inspection, no pedal edema, no calf tenderness (and neg Bhavya's sign) Neurologic/Psychiatric: alert, normal mood/affect Skin: normal color, warm/dry, no rash Review of Systems: Constitutional: No fever, No chills, No sweats Eyes: No problem reported ENT: + problem reported (Left ear pain-mild), No hearing loss Respiratory: + cough (But much improved), No shortness of breath, No dyspnea on exertion Cardiovascular: No chest pain Abdomen: + constipation, No pain, No nausea, No vomiting Musculoskeletal: No problem reported Genitourinary - Female: + vaginal itching Neurologic: No problem reported Psychiatric: No problem reported Endocrine: No problem reported Hematologic / Lymphatic: No problem reported Integumentary: No problem reported Hospital Course This patient is a 23-year-old female with a history of seasonal allergies and IBS-C who presents for the second time in the last 4 days for fever and cough. She was seen in this ER on 05/26 for fever and a dry cough and was found to have a right lower lobe pneumonia at that time. She had taken 1 dose of azithromycin given at the urgent care from the day before and at that point on , the ER physician switched her medication to doxycycline. Since then, she has been taking the doxycycline, but continued to spike fevers each day, and continues to have a nonproductive cough. In the ER here, she was found to be mildly hypoxic at 93 of 94%, tachycardic, and febrile. Her chest x-ray showed a worsening right lower lobe round pneumonia and some right upper lobe patchy airspace opacities. She was admitted for failure of outpatient therapy for community-acquired pneumonia, as well as sepsis. Sepsis/community acquired pneumonia/acute hypoxic respiratory insufficiency- failed outpatient therapy with 1 dose of azithromycin and 3 days worth of doxycycline, however probably has Streptococcus pneumoniae that is resistant to these medications. She has no underlying cardiopulmonary or autoimmune disorders. She has no evidence otherwise on her entire exam or by laboratory findings to suggest atypical type of infection. She is septic by definition with tachycardia and fever, however there is no leukocytosis and her lactate is normal. Much improved, sepsis resolved. Blood cultures no growth to date over 48 hours -Received 3 days of IV Rocephin and azithromycin and will discharge to home on 4 more days of cefdinir and 2 more days of azithro for discharge to finish out a 7 day course -She will need follow-up on chest x-ray to resolution in 4-6 weeks -Can continue to take a probiotic -Follow final results of blood cultures as an outpatient -Sputum culture was never obtained due to lack of productive cough -Continue Mucinex 600 mg twice a day as an outpatient Suspected gastritis-could be from doxycycline-was nauseated and with epigastric pains-now resolved with stopping doxy and starting Zantac -continue Zantac x 7 days total Hypokalemia-potassium mildly low at 3.4 on the day of discharge -Replaced with 40 mEq of potassium chloride orally Seasonal allergies/vernal conjunctivitis-no active issues currently -Continue Zyrtec as needed, she currently does not need her allergy eyedrop [id number] issue -MiraLAX as needed -Emelia has worked for her in the past, however it was not covered by her insurance-perhaps she could obtain samples from her PCP Stable for discharge to home Total Time Spent: Greater than 30 minutes This includes examination of the patient, discharge planning, medication reconciliation, and communication with other providers. Discharge Instructions Please refer to the electronic Patient Visit Report (Discharge Instructions) for additional information. Follow-Up With PCP at [facility] on Wednesday as scheduled for her Additional Copies To Kiki Ellis M.D.; [facility]
[2018-05-31 13:24] VITALS: BP 105/69; PULSE 66; TEMP 37; O2SAT 96
== END 2018-05-31 14:12 | disposition home or self-care (01) | DRG 871 ==
LOC: C.EDB 08:26 → C.MED 12:03 → ENRESERV 12:13
PROVIDERS: ADMIT Family Medicine; ATTEND Family Medicine
DX: A41.9 Sepsis, unspecified organism (principal); J18.9 Pneumonia, unspecified organism; T36.0X5A Adverse effect of penicillins, initial encounter; K58.9 Irritable bowel syndrome, unspecified; J30.2 Other seasonal allergic rhinitis; H16.209 Unspecified keratoconjunctivitis, unspecified eye; E87.6 Hypokalemia; K29.70 Gastritis, unspecified, without bleeding; Y92.019 Unspecified place in single-family (private) house as the place of occurrence of the external cause; R09.02 Hypoxemia